=== PATIENT | female | born 1990 | race Caucasian/White ===

== ENCOUNTER → 2019-08-21 | Outpatient (CLI) | payer OTHER ==
--- NOTE | 2019-08-21 11:20 | PCVCIMAG ---
APPROVED REPORT Study performed: 08/21/2019 09:29:10 EXAM: Comprehensive 2D, Doppler, and color-flow Echocardiogram Patient Location: Echo lab Room #: 2Status: routine BSA: 1.68 HR: 72 bpmBP: 110/76 mmHg Rhythm: NSR Other Information Study Quality: Good Indications Palpitations Tachycardia 2D Dimensions IVSd: 7.14 (7-11mm)LVOT Diam: 20.05 (18-24mm) LVDd: 49.17 mm PWd: 7.57 (7-11mm)Ascending Ao: 24.77 (22-36mm) LVDs: 31.74 (25-40mm) Left Atrium: 30.07 (27-40mm) Aortic Root: 22.99 mm LV Single Plane 4CH: 64.96 % LV Single Plane 2CH: 60.15 % Biplane EF: 63.0 % Volumes Left Atrial Volume (Systole) Single Plane 4CH: 65.37 mLSingle Plane 2CH: 54.67 mL Biplane LA Volume: 63.00 mLLA ESV Index: 37.00 mL/m2 Aortic Valve AoV Peak Branden.: 1.39 m/s AO Peak Gr.: 7.70 mmHgLVOT Max P.57 mmHg LVOT Max V: 1.18 m/s TOYIN Vmax: 2.68 cm2 Mitral Valve E/A Ratio: 2.5 MV Decel. Time: 160.48 ms MV E Max Branden.: 0.86 m/s MV A Branden.: 0.35 m/s IVRT: 81.31 ms TDI E/Lateral E': 3.91E/Medial E': 5.73 Medial E' Branden.: 0.15 m/s Lateral E' Branden.: 0.22 m/s Pulmonary Valve PV Peak Branden.: 1.01 m/sPV Peak Gr.: 4.06 mmHg Pulmonary Vein P Vein S: 0.49 m/sP Vein A: 0.42 m/s P Vein D: 0.74 m/sP Vein A Dur.: 103.8 msec P Vein S/D Ratio: 0.66 Tricuspid Valve TR Peak Branden.: 2.26 m/s TR Peak Gr.: 20.41 mmHg TV Vmax: 0.82 m/sPA Pressure: 27.00 mmHg Left Ventricle The left ventricle is normal size. There is normal LV segmental wall motion. There is normal left ventricular wall thickness. Left ventricular systolic function is normal. The left ventricular ejection fraction is within the normal range. LVEF is 60-65%. The left ventricular diastolic function is normal. Right Ventricle The right ventricle is normal size. The right ventricular systolic function is normal. Atria The left atrium size is normal. The right atrium size is normal. Aortic Valve The aortic valve is normal in structure and function. No aortic regurgitation is present. There is no aortic valvular stenosis. Mitral Valve The mitral valve is normal in structure. There is no mitral valve regurgitation noted. No evidence of mitral valve stenosis. Tricuspid Valve The tricuspid valve is normal in structure. There is trace tricuspid valve regurgitation noted with a PA pressure of 25 mmHg. Pulmonic Valve The pulmonary valve is normal in structure. There is no pulmonic valvular regurgitation. Great Vessels The aortic root is normal in size. The ascending aorta is normal in size. Aortic arch is normal in caliber. IVC is normal in size and collapses >50% with inspiration. Pericardium There is no pericardial effusion. There is no pleural effusion. <Conclusion> The left ventricle is normal size. There is normal left ventricular wall thickness. Left ventricular systolic function is normal. The left ventricular diastolic function is normal. The right ventricle is normal size. The left atrium size is normal. The aortic valve is normal in structure and function. The mitral valve is normal in structure. There is trace tricuspid valve regurgitation noted with a PA pressure of 25 mmHg.
--- NOTE | 2019-08-21 11:23 | PCVCIMAG ---
APPROVED REPORT Patient Location: Echo lab- [facility] Room #: 2 Stress Nurse: Rochelle Springer RN INDICATIONS: Tachycardia, dyspnea on exertion, palpitations The patient exercised according to the [facility]AN[facility] protocol for 12:28 mins; achieving a work level of 15.1 METS. The resting heart rate of 83 bpm gil to a maximum heart rate of 190 bpm. This value represents 99% of the maximal, age-predicted heart rate. The resting blood pressure of 110/76 mmHg, gil to a maximum blood pressure of 148/80mmHg. The exercise test was stopped due to fatigue. Conclusion 1. Clinical response, nonischemic. 2. Stress ECG response, nonischemic. 3. Exercise capacity, superior.
== END | disposition home or self-care (01) ==
LOC: PCVCIMAG 09:21
PROVIDERS: ATTEND Internal Medicine Cardiovascular Disease
DX: R00.2 Palpitations (principal); R06.09 Other forms of dyspnea; R00.0 Tachycardia, unspecified
CPT/HCPCS: 93017; 93306